=== PATIENT | female | born 1995 | race Two or more races ===

== ENCOUNTER → 2024-09-27 | Outpatient (CLI) | payer BC, SELFPAY ==
[2024-09-27 11:26] LABS: Calcium, Ionized 4.7 mg/dL (4.6-5.6)
[2024-09-27 11:28] LABS: Basophils % (Auto) 0 % (0-2.5); Eosinophils # (Auto) 0.2 Thou/mm3 (0.0-0.5); Eosinophils % (Auto) 2 % (0-10); Hematocrit 39.4 % (36.0-46.0); Hemoglobin 13.6 g/dL (12.0-16.0); Immature Granulocytes % (Auto) 0 % (0-0); Immature Granulocytes Auto 0.03 Thou/mm3 (0.00-0.00); Lymphocytes # (Auto) 2.5 Thou/mm3 (1.0-4.8); Lymphocytes % (Auto) 32 % (10-50); Mean Corpuscular HGB Conc 34.5 g/dl (31.0-37.0); Mean Corpuscular Hemoglobin 30.6 pg (25.0-35.0); Mean Corpuscular Volume 89 fL (80-100); Monocytes # (Auto) 0.9 Thou/mm3 (0.0-0.8); Monocytes % (Auto) 11 % (0-12); Neutrophils # (Auto) 4.3 Thou/mm3 (1.8-7.7); Neutrophils % (Auto) 55 % (37-80); Nucleated Red Blood Cell % 0 /100 WBC (0); Platelet Count 260 Thou/mm3 (140-440); RDW Standard Deviation 43.7 fL (36.4-46.3); Red Blood Count 4.45 Miln/mm3 (4.00-5.20); White Blood Count 7.9 Thou/mm3 (3.6-11.0)
[2024-09-27 11:50] LABS: Folate 14.49 ng/mL (>5.38); Vitamin B12 428 pg/mL (211-911); Vitamin D 25 Hydroxy Total 21.6 ng/mL (7.3-40.2)
[2024-09-27 12:16] LABS: Iron 189 mcg/dL (50-170)
[2024-09-27 12:19] LABS: Collection Type, Urine Clean Catch
[2024-09-27 12:39] LABS: Bilirubin,Urine Negative (Negative); Blood,Urine Negative (Negative); Clarity,Urine Clear (Clear/Hazy); Color,Urine Lt-Yellow (Lt Yel-Yel); Culture Indicated,Urine Not Indicated; Glucose, Urine Negative (Negative); Ketones,Urine Negative (Negative); Leukocyte Esterase,Urine Negative (Negative); Nitrite,Urine Negative (Negative); PH,Urine 5.5 (5.0-7.0); Protein,Urine Negative (Neg - Trace); RBC,Urine 3 /hpf (0-3); Specific Gravity,Urine 1.023 (1.001-1.035); Squamous Epithelial Cell,Urine < 1 /hpf (0-5); Urobilinogen,Urine Negative mg/dL (0.0-1.0); WBC,Urine < 1 /hpf (0-5)
[2024-09-27 12:51] LABS: Parathyroid Hormone Intact 48.1 pg/ml (18.5-88.0)
[2024-09-27 13:10] LABS: Syphilis Nonreactive (Nonreactive)
[2024-09-27 13:40] LABS: Alanine Aminotransferase 42 U/L (10-49); Albumin, Serum 4.8 gm/dL (3.5-5.0); Albumin/Globulin Ratio 1.8 (1.2-2.2); Alkaline Phosphatase 50 U/L (46-116); Anion Gap 8 (7-16); Aspartate Amino Transferase 24 U/L (0-34); BUN/Creatinine Ratio 20 Ratio (12-20); Bilirubin,Total 0.5 mg/dL (0.3-1.2); Blood Urea Nitrogen 14 mg/dL (9-23); Calcium 10.1 mg/dL (8.3-10.6); Calcium (Corrected) 10.1 mg/dL (8.5-10.1); Chloride 106 mMol/L (98-107); Creatinine (Component) 0.7 mg/dL (0.6-1.3); Globulin 2.7 gm/dL (2.3-3.5); Glucose 85 mg/dL (74-106); Magnesium 2.2 mg/dL (1.6-2.6); Osmolality,Calculated 280 (275-295); Potassium 4.6 mMol/L (3.4-5.1); Sodium 141 mMol/L (136-145); Thyroid Stimulating Hormone 1.24 uIU/mL (0.55-4.78); Total Protein 7.5 gm/dL (5.7-8.2); eGFR > 60 See Note
[2024-09-27 13:58] LABS: Cardiac Risk Estimate 3.9 RATIO (3.7-5.6); Cholesterol 185 mg/dL (132-200); HDL Cholesterol 48 mg/dL (40-60); LDL Cholesterol,Calculated 116 mg/dL (0-130); Triglycerides 107 mg/dL (30-150)
[2024-09-27 14:29] LABS: Glucose Estimated Average 94 mg/dL (80-131); Hemoglobin A1C 4.9 % Hgb (4.8-6.0)
[2024-09-27 15:12] LABS: Ferritin 80 ng/mL (7.3-270.7); Total Iron Binding Capacity 458 mcg/dL (250-425)
[2024-09-28 12:27] LABS: Chlamydia trachomatis PCR Negative (Not Detect); Neisseria Gonorrhoeae DNA PCR Negative (Not Detect); Trichomonas Negative (Negative)
[2024-10-02 17:49] LABS: HSV1 IgG Type Specific Ab <0.90 INDEX
[2024-10-04 06:36] LABS: HIV Ag/Ab, 4th Gen NON-REACTIVE; HSV2 IgG Type Specific Ab <0.90 INDEX
== END | disposition home or self-care (01) ==
LOC: COPL 10:47
PROVIDERS: PCP Family Medicine; Referring Provider Nurse Practitioner Family; Visit Provider Nurse Practitioner Family
DX: R42 Dizziness and giddiness (principal); I10 Essential (primary) hypertension; Z11.3 Encounter for screening for infections with a predominantly sexual mode of transmission; E78.5 Hyperlipidemia, unspecified; E55.9 Vitamin D deficiency, unspecified
CPT/HCPCS: 36415; 80053; 80061; 81001; 82306; 82330; 82607; 82728; 82746; 83036; 83540; 83550; 83735; 83970; 84439; 84443; 85025; 86695; 86696; 86780; 87389; 87491; 87591; 87661

== ENCOUNTER 2024-09-28 00:06 | Emergency (ER) | payer BC, SELFPAY ==
[2024-09-28 00:06] VITALS: BMI 28.3
[2024-09-28 00:18] VITALS: BP 139/91; PULSE 77; RESP 16; TEMP 37.2; O2SAT 99
--- NOTE | 2024-09-28 00:39 | XR_ITS ---
Examination: Transvaginal ultrasound of the pelvis, complete Technique: Transvaginal sonographic images pelvis performed using garza scale imaging Exam date and time: September 28, 2024 0114 hrs. Indications: Worsening pelvic pain beginning 2 days ago Findings: Uterus 9.2 x 4.5 x 5.3 cm Endometrial stripe 0.7 cm No uterine mass or intrauterine gestation Right ovary 2.0 x 1.5 x 1.7 cm arterial flow small follicles Left ovary 2.5 x 2.1 x 2.3 cm arterial flow small follicles No fluid in the cul-de-sac Impression: Negative examination.
--- NOTE | 2024-09-28 00:43 | PD.EDFMALE ---
ED Female Urogenital RME/HPI General Chief complaint: Abdominal Pain Stated complaint: LEFT PELVIC PAIN/CRAMPING SINCE YEST Time Seen by Provider: 09/28/24 00:39 Arrival date/time: 09/28/24 00:06 29F with history of HTN presents to ED with 2 days of L pelvic pain and N/V. Possibly dysuria. Patient denies vaginal bleeding but states her period is 2 weeks late. Limitations: no limitations Related Data Previous Rx's ?Medication ?Instructions ?Recorded hydrochlorothiazide 12.5 mg capsule 12.5 mg PO QDAY #30 caps 07/07/20 Allergies Allergy/AdvReac Type Severity Reaction Status Date / Time No Known Allergies Allergy Verified 09/28/24 00:08 Review of Systems Review of Systems Systems Reviewed: All systems reviewed, normal except as documented Constitutional Constitutional: Reports system reviewed and no additional complaints, except as documented, Denies fever(s) and Denies headache(s) ENT Ears, Nose, Mouth, and Throat: Denies disequilibrium and Denies headache(s) Cardiovascular Cardiovascular: Reports system reviewed and no additional complaints, except as documented, Denies chest pain and Denies dyspnea Respiratory Respiratory: Reports system reviewed and no additional complaints, except as documented, Denies cough and Denies dyspnea Gastrointestinal Gastrointestinal: Reports system reviewed and no additional complaints, except as documented, Reports as per HPI, Denies abdominal pain, Reports nausea and Reports vomiting Genitourinary Genitourinary: Reports as per HPI and Reports pelvic pain Neurologic Neurologic: Reports system reviewed and no additional complaints, except as documented, Denies confusion, Denies disequilibrium and Denies headache(s) Psychiatric Psychiatric: Denies confusion Past Medical History Past Medical History NEUROLOGIC: Negative Neurological Disorders CARDIAC: Positive Cardiac Disorders and Hypertension; Negative Congestive Heart Failure RESPIRATORY: Negative Chronic Obstructive Pulmonary Disease (COPD) GASTROINTESTINAL: Negative Gastrointestinal Disorders GENITOURINARY: Negative Genitourinary Disorders or Renal Disease MUSCULOSKELETAL: Negative Musculoskeletal Disorders ENDOCRINE: Positive Hypoglycemia; Negative Endocrine Disorders, Diabetes Mellitus Type 1 or Diabetes Mellitus Type 2 HEMATOLOGIC: Negative Blood Disorders Social History SMOKING STATUS: Never smoker ED Exam General Limitations: Present no limitations General appearance: Present alert and in no apparent distress Head Head exam: Present atraumatic Eye Eye exam: Present normal appearance, PERRL and EOMI ENT ENT exam: Present normal exam, normal oropharynx and mucous membranes moist Neck Neck exam: Present normal inspection, full ROM and trachea midline Chest Chest inspection: Present normal inspection and symmetric chest wall rise Respiratory Respiratory exam: Present normal lung sounds bilaterally Cardiovascular Cardiovascular exam: Present regular rate, normal rhythm and normal heart sounds Abdominal Exam Abdominal exam: Present soft and normal bowel sounds Extremities Exam Extremities exam: Present normal inspection and full ROM Back Exam Back exam: Present normal inspection and full ROM Neurological Exam Neurological exam: Present alert, oriented X3 and CN II-XII intact Psychiatric Psychiatric exam: Present normal affect and normal mood Skin Skin exam: Present warm, dry, intact and normal color Course Quality Measures none Orders Category Date Time Status US transvaginal Stat Exams 09/28/24 00:39 Taken CBC Stat Lab 09/28/24 01:06 Completed CMP [Comprehensive Metabolic Panel] Stat Lab 09/28/24 01:06 Completed Drug Screen,Urine Stat Lab 09/28/24 01:40 Completed HCG Qualitative,Urine Stat Lab 09/28/24 01:40 Completed Urinalysis, C/S if Indicated Stat Lab 09/28/24 01:40 Completed Ketorolac Inj [Toradol Inj] Med 09/28/24 02:29 Discontinued 60 mg IM X1 ONE Metoclopramide [Reglan] Med 09/28/24 00:44 Discontinued 10 mg PO X1 ONE Ondansetron Odt [Zofran Odt] Med 09/28/24 00:40 Discontinued 4 mg PO X1 ONE Vital Signs Vital signs: Vital Signs Temperature 98.9 F 09/28/24 00:18 Pulse Rate 77 09/28/24 00:18 Respiratory Rate 16 09/28/24 00:18 Blood Pressure 139/91 H 09/28/24 00:18 Pulse Oximetry (%) 99 09/28/24 00:18 Oxygen Delivery Method Room Air 09/28/24 00:18 O2 at 99% on RA and WNLs Urogenital - Female MDM Narrative MDM Narrative:: 29F with history of HTN presents to ED with 2 days of L pelvic pain and N/V. Possibly dysuria. Patient denies vaginal bleeding but states her period is 2 weeks late. Physical exam reveals no ab/pelvic tenderness. Patient is afebrile, calm, and alert. US reveals L ovarian cyst. No leukocytosis. CMP unremarkable. UA clean. HCG neg. Patient data External records reviewed:: [facility] previous records Clinical information provided by:: patient Social determinants that could affect healthcare access:: none Patient has the following chronic illnesses:: HTN How is presenting disease/condition affected by chronic disease/condition?: uneffected by Evaluation data The following diagnostics were reviewed and interpreted by me:: lab results and radiology exam(s) Lab and/or radiology exams considered but not ordered:: ordered Interpretation Summary: above Medications / Prescriptions Medications or Prescriptions considered but not ordered:: ordered Medication administrations:: Medication Administration History Discontinued Medications Ketorolac Tromethamine (Ketorolac Inj 60 Mg/2 Ml Vial) 60 mg IM X1 ONE Stop: 09/28/24 02:30 Metoclopramide HCl (Metoclopramide 5 Mg Tablet) 10 mg PO X1 ONE Stop: 09/28/24 00:45 Last Admin: 09/28/24 00:59 Dose: 10 mg Documented By: KRISTEN Ondansetron HCl (Ondansetron Odt 4 Mg Tabrap) 4 mg PO X1 ONE; Protocol Stop: 09/28/24 00:41 Last Admin: 09/28/24 01:01 Dose: Not Given Documented By: KRISTEN Non-Admin Reason: Discontinued above Consultations Consultation(s) initiated? (list below): No Diagnosis Urogenital Female Differential Diagnosis: urinary tract infection, bacterial vaginosis, trichomoniasis, cervicitis, ovarian cyst, vaginitis, ruptured ovarian cyst, cyst of Bartholin's gland, cystitis, dysmenorrhea and other (torsion, , miscarriage) Most likely diagnosis given after review of the tests above:: ovarian cyst Admission Indicated Admission indicated?: not indicated Admission Request Was there a request for admission?: No Disposition Plan Disposition Plan: Discharge Discharge Attestation Discharge Attestation: The patient and all family members were given an opportunity to ask questions and understood the discharge instructions. Discharge instructions specifically effects, indications for sooner follow up or return to the emergency department, and the expected course of current diagnosis. Patient condition: Stable Discharge Plan Plan Patient Disposition: HOME (Self Care) Disposition Comment: Stable Prescriptions/Referrals Prescriptions/Med Rec: No Action hydrochlorothiazide 12.5 mg capsule 12.5 mg PO QDAY Qty: 30 0RF Referrals: Corwin Irizarry([facility])MD [Primary Care Provider] - In 1 week Problem List Clinical Impression: Ovarian cyst Patient/Caregiver Discharge Instructions Education Materials: ED Ovarian Cyst Additional Instructions: Please follow-up with PCP within 24-48 hours and return immediately if symptoms worsen. Print Language: Turkmen Stand Alone Forms: Patient Portal Info Letter PA/TEAROOM HOST Supervising Physician CHEYENNE/UMBERTO Supervising Physician: Dr. Coles
[2024-09-28] MEDS: METOCLOPRAMIDE 5 MG TABLET 10 MG PO (00:59)
[2024-09-28 01:34] LABS: Basophils % (Auto) 0 % (0-2.5); Eosinophils # (Auto) 0.2 Thou/mm3 (0.0-0.5); Eosinophils % (Auto) 2 % (0-10); Hematocrit 35.3 % (36.0-46.0); Hemoglobin 12.5 g/dL (12.0-16.0); Immature Granulocytes % (Auto) 0 % (0-0); Immature Granulocytes Auto 0.03 Thou/mm3 (0.00-0.00); Lymphocytes % (Auto) 42 % (10-50); Mean Corpuscular HGB Conc 35.4 g/dl (31.0-37.0); Mean Corpuscular Hemoglobin 30.6 pg (25.0-35.0); Mean Corpuscular Volume 86 fL (80-100); Monocytes # (Auto) 1.1 Thou/mm3 (0.0-0.8); Monocytes % (Auto) 11 % (0-12); Neutrophils # (Auto) 4.2 Thou/mm3 (1.8-7.7); Neutrophils % (Auto) 44 % (37-80); Nucleated Red Blood Cell % 0 /100 WBC (0); Platelet Count 220 Thou/mm3 (140-440); RDW Standard Deviation 41.6 fL (36.4-46.3); Red Blood Count 4.09 Miln/mm3 (4.00-5.20); White Blood Count 9.5 Thou/mm3 (3.6-11.0)
[2024-09-28 01:49] LABS: Alanine Aminotransferase 36 U/L (10-49); Albumin, Serum 4.7 gm/dL (3.5-5.0); Albumin/Globulin Ratio 1.7 (1.2-2.2); Alkaline Phosphatase 51 U/L (46-116); Anion Gap 7 (7-16); Aspartate Amino Transferase 20 U/L (0-34); BUN/Creatinine Ratio 16 Ratio (12-20); Bilirubin,Total 0.4 mg/dL (0.3-1.2); Blood Urea Nitrogen 14 mg/dL (9-23); Calcium 10.1 mg/dL (8.3-10.6); Calcium (Corrected) 10.1 mg/dL (8.5-10.1); Chloride 107 mMol/L (98-107); Creatinine (Component) 0.9 mg/dL (0.6-1.3); Estimated Creatinine Clearance 89.6 mL/min (>60); Globulin 2.7 gm/dL (2.3-3.5); Glucose 87 mg/dL (74-106); Osmolality,Calculated 280 (275-295); Potassium 4.6 mMol/L (3.4-5.1); Sodium 141 mMol/L (136-145); Total Protein 7.4 gm/dL (5.7-8.2); eGFR > 60 See Note
--- NOTE | 2024-09-28 01:54 | PRELIM_ITS ---
Pelvic ultrasound (transvaginal). September 28, 2024 0114 hours Clinical history: L pelvic pain Techni que: Real-time, grayscale, transvaginal pelvic ultrasound was performed using Duplex scanning includi ng arterial inflow, venous outflow, color and spectral Doppler.Findings:The uterus is anteverted, elida suring 9.2 x 4.5 x 5.3 cm. The endometrium is unremarkable and measures 0.7 cm.The right ovary measur es 2 x 1.5 x 1.7 cm and demonstrates multiple follicles.The left ovary measures 2.5 x 2.1 x 2.3 cm an d demonstrates multiple follicles. There is a small cyst measuring 0.9 x 0.5 x 0.8 cm.Both ovaries de monstrate color flow and spectral waveforms on Doppler evaluation.There is no adnexal mass.There is n o free fluid on the submitted images.Impression:No sonographic evidence of ovarian torsion is demonst rated on the submitted images. Report Electronically Signed By: Avila Kennedy 09/28/2024 1:54:11 AM [E ST]
[2024-09-28 02:07] LABS: Collection Type, Urine Clean Catch
[2024-09-28 02:12] LABS: Bilirubin,Urine Negative (Negative); Blood,Urine Negative (Negative); Clarity,Urine Clear (Clear/Hazy); Color,Urine Lt-Yellow (Lt Yel-Yel); Culture Indicated,Urine Not Indicated; Glucose, Urine Negative (Negative); Ketones,Urine Negative (Negative); Leukocyte Esterase,Urine Negative (Negative); Nitrite,Urine Negative (Negative); Protein,Urine Negative (Neg - Trace); RBC,Urine 2 /hpf (0-3); Specific Gravity,Urine 1.027 (1.001-1.035); Squamous Epithelial Cell,Urine < 1 /hpf (0-5); Urobilinogen,Urine Negative mg/dL (0.0-1.0); WBC,Urine < 1 /hpf (0-5)
[2024-09-28 02:19] LABS: Amphetamine/Methamp Scrn,U Negative (Negative); Barbiturate Screen,Urine Negative (Negative); Benzodiazepines Screen,Urine Negative (Negative); Benzoylecgonine Screen, Ur Negative (Negative); Fentanyl Screen,Urine Negative (Negative); Opiate Screen,Urine Negative (Negative); THC Screen,Urine Negative (Negative)
[2024-09-28 02:21] LABS: HCG Qualitative,Urine Negative
== END 2024-09-28 02:46 | disposition home or self-care (01) ==
PROVIDERS: Physician Assistant; Emergency Provider Emergency Medicine; PCP Family Medicine
DX: N83.202 Unspecified ovarian cyst, left side (principal)
CPT/HCPCS: 36415; 76830; 80053; 80307; 81001; 81025; 85025; 99284; A9270

== ENCOUNTER 2024-12-09 23:32 | Emergency (ER) | payer BC, SELFPAY ==
[2024-12-09 23:34] VITALS: BP 184/115; PULSE 90; RESP 18; TEMP 36.9; O2SAT 98; BMI 28.0
[2024-12-09 23:39] VITALS: PULSE 84; RESP 18; O2SAT 99; BMI 28.3
--- NOTE | 2024-12-09 23:44 | XR_ITS ---
Examination: AP chest single view Technique one AP portable upright chest single view Exam date and time: December 10, 2024 0007 hrs. Comparison March 29, 2022 Indications: Onset chest pain today Findings: Normal heart size Lungs are clear. The osseous structures are intact Impression: No active disease
--- NOTE | 2024-12-09 23:46 | PD.EDSYNC ---
ED Syncope RME/HPI General Chief Complaint: Syncope / Near Syncope Stated Complaint: SYNCOPE Time Seen by Provider: 12/09/24 23:34 Arrival date/time: 12/09/24 23:32 RME / HPI RME / HPI narrative: Dr. Morillo?s Main ED Evaluation: 29yo female with a history of HTN who is ~9 weeks gestation BIBA from home presents to the ED for a chief complaint of syncope. Patient states she was at work when she started feeling weird , reporting she felt lethargic, nauseated, and my head was foggy and in a weird head space . Patient states she checked her blood pressure when she got home and was noted to be 180/100s, stating she felt faint and like I couldn't move . She states she was lightheaded, so she sat down and lost consciousness when her mom was calling 911 to bring her in for evaluation. Patient states she took an pill at 1200, noting she doesn't take the second one until tomorrow at 1200. She was having mild pelvic cramping that has since resolved. She reports associated sweating, mid chest pressure, shortness of breath, and nausea. She denies any vomiting, vaginal bleedig, weight changes, cough, runny nose or any other associated symptoms. Denies any alcohol or illicit drug use. She states she has been off of her antihypertensives for the last 3 months, but notes her blood pressure has been within niormal limits. No known allergies. Related Data Previous Rx's ?Medication ?Instructions ?Recorded hydrochlorothiazide 12.5 mg capsule 12.5 mg PO QDAY #30 caps 07/07/20 Allergies Allergy/AdvReac Type Severity Reaction Status Date / Time No Known Allergies Allergy Verified 09/28/24 00:08 Review of Systems Review of Systems Systems Reviewed: All systems reviewed, normal except as documented ED Exam Narrative Physical exam: GENERAL APPEARANCE: alert and oriented x 4, well-developed, well-nourished, no acute distress VITALS: All vitals were reviewed and the pulse ox is 98% on room air, which is normal according to my interpretation. HEENT: Normocephalic, atraumatic; pupils equal, round, reactive to light; EOMI; mucous membranes pink, moist; oropharynx clear NECK: Supple LUNGS: CTABL; no wheezes, no rales, no rhonchi HEART: Mildly tachycardic, regular rhythm; normal S1, S2; no murmurs ABDOMEN: non distended; normal BS; soft, no tenderness, no guarding, no rebound; no masses, no organomegaly, no hernia BACK: no CVA tenderness EXTREMITIES: atraumatic; no edema NEUROLOGIC: awake; alert and oriented x4; cranial nerves II-XII grossly intact; no focal sensory or motor deficits PSYCHIATRIC: anxious mood and affect SKIN: warm, dry, normal color; no rashes Course Course Course Narrative: CXR is ordered for determining the etiology of syncope. Quality Measures none Orders Category Date Time Status CT Screening NOW Care 12/10/24 03:10 Active Audio/Video Technician STAT Care 12/09/24 23:44 Active Continuous Pulse Oximetry ONCE Care 12/09/24 23:44 Active EKG (ED ONLY) *Do not use* NOW Care 12/09/24 23:44 Completed Insert IV STAT Care 12/09/24 23:[address] angio chest Stat Exams 12/10/24 03:10 Taken EKG (ED Only) Stat Exams 12/09/24 23:44 Ordered XR chest 1V portable Stat Exams 12/09/24 23:44 Taken B-Type Natriuretic Peptide Stat Lab 12/09/24 23:45 Completed CBC Stat Lab 12/09/24 23:45 Completed Comprehensive Metabolic Panel Stat Lab 12/09/24 23:44 Completed Drug Screen,Urine Stat Lab 12/09/24 23:52 Completed Free T4 (Free Thyroxine) Stat Lab 12/10/24 00:05 Completed HCG Qualitative,Urine Stat Lab 12/09/24 23:52 Completed Lipase Stat Lab 12/09/24 23:44 Completed Magnesium Stat Lab 12/09/24 23:44 Completed Thyroid Stimulating Hormone Stat Lab 12/10/24 00:05 Completed Troponin I Stat Lab 12/09/24 23:44 Completed Urinalysis, C/S if Indicated Stat Lab 12/09/24 23:52 Completed LORazepam [Ativan Inj] Med 12/10/24 02:02 Discontinued 0.5 mg IVP X1 ONE LORazepam [Ativan Inj] Med 12/10/24 02:58 Discontinued 0.5 mg IVP X1 ONE Labetalol IV [Trandate IV] Med 12/10/24 03:30 Discontinued 10 mg IVP X1 ONE Sodium Chloride 0.9% 1000 ml [Ns] 1,000 ml Med 12/09/24 23:44 Discontinued IV 999 mls/hr Vancomycin Inj 1,000 mg Med 12/09/24 23:43 Discontinued Sodium Chloride 0.9% 250 ml [Ns] 250 ml IV X1 hydrALAZINE INJ [Apresoline Inj] Med 12/10/24 01:30 Discontinued 10 mg IV X1 ONE Vital Signs Vital signs: Vital Signs Temperature 98.5 F 12/09/24 23:34 Pulse Rate 90 12/09/24 23:34 Respiratory Rate 18 12/09/24 23:34 Blood Pressure 184/115 H 12/09/24 23:34 Pulse Oximetry (%) 98 12/09/24 23:34 Oxygen Delivery Method Room Air 12/09/24 23:34 Syncope MDM Narrative MDM Narrative:: Scribe Attestation: 12/09/24 - Lauren Vance am scribing for and in the presence of Dr. Morillo. 0130: Patient's blood pressure is 145/114. Hydralazine 10mg ordered. 0145: I had an extensive conversation with the patient and her mom at the bedside. Patient's blood pressure is 188/118. Patient states she feels anxious, reporting it occurs when she is having medical problems. Ativan 0.5mg ordered. 0310: Patient is tachycardic in the 120s, reporting her symptoms have not resolved. CTA of the chest ordered to r/o PE. 0330: Diastolic blood pressure is 110 and the patient is still tachycardic. Labetolol 10mg ordered. 0455: I had an extensive conversation with the patient and her mom at bedside regarding the patient's test results. Patient and her mom had the opportunity to ask any questions they had, at which time they were all answered. Patient is stable to be discharged home. Return precautions were given. Patient verbalized understanding. Patient data External records reviewed:: [facility] previous records (Per chart review, patient was seen here on 09/28/24 for an ovarian cyst.) Clinical information provided by:: patient Social determinants that could affect healthcare access:: none Patient has the following chronic illnesses:: HTN How is presenting disease/condition affected by chronic disease/condition?: exacerbated by Evaluation data The following diagnostics were reviewed and interpreted by me:: lab results, radiology exam(s) and EKG tracing(s) Lab and/or radiology exams considered but not ordered:: none Interpretation Summary: CBC is normal, CMP is normal, Troponin is normal, BNP is normal, Lipase is normal, UDS is negative, HCG is positive, UA is unremarkable, according to my interpretation. CXR shows normal cardiac silhouette, normal sharp diaphragmatic edge, no infiltrates, normal costophrenic angles, according to my interpretation. EKG done at 2345, NSR, rate of 79, normal axis, RBBB, no ectopy, QRS: 102, QTc: 392, no STEMI, according to my interpretation. Telerad Preliminary Report Draft Patient: DOROTHEA MAE. Record#: [id number] Birthdate: 1995 Age/Sex: 29 / F Location: [facility] Attending Dr: Ordering Physician: Date of Service: Procedure(s): Accession Number(s): cc: ~ CT angiogram of the chest with intravenous contrast (axial sections with sagittal and coronal reformats); dated December 10, 2024 at 0346 hours Clinical History: Chest pain, tachy. Technique:Helical axial sections with sagittal and coronal reformats of the chest were obtained with intravenous contrast. Iterative reconstruction technique was employed to reduce patient radiation exposure. 3D/MIP reconstructed images were also provided. Comparison: None. Findings: There is no filling defect within the pulmonary artery divisions to suggest pulmonary thromboembolism. The mediastinum demonstrates no evidence of mass or lymphadenopathy. The thoracic aorta is unremarkable. There is no pericardial effusion. The lungs are clear. No evidence of pleural effusion or pneumothorax. The osseous structures are unremarkable. The visualized upper abdominal viscera are unremarkable. Impression: No CT evidence of pulmonary thromboembolism or other acute intrathoracic pathology. Report Electronically Signed By: Marcos Delgado 12/10/2024 4:54:42 AM Medications / Prescriptions Medications or Prescriptions considered but not ordered:: none Medication administrations:: Medication Administration History Discontinued Medications Hydralazine HCl (Hydralazine Inj 20 Mg/Ml Vial) 10 mg IV X1 ONE Stop: 12/10/24 01:31 Last Admin: 12/10/24 01:46 Dose: 10 mg Documented By: ERYN Vancomycin HCl 1,000 mg/ (Sodium Chloride) 250 mls @ 150 mls/hr IV X1 ONE Stop: 12/10/24 01:22 Sodium Chloride (Ns) 1,000 mls @ 999 mls/hr IV .Q1H1M ONE Stop: 12/10/24 00:44 Last Infusion: 12/10/24 01:18 Dose: Infused Documented By: Admin: 12/10/24 00:16 Dose: 999 mls/hr Documented By: ERYN Labetalol HCl (Labetalol Inj 5 Mg/Ml Vial 20 Ml) 10 mg IVP X1 ONE Stop: 12/10/24 03:31 Last Admin: 12/10/24 03:54 Dose: 10 mg Documented By: ERYN Lorazepam (Lorazepam 2 Mg/Ml Vial) 0.5 mg IVP X1 ONE Stop: 12/10/24 02:03 Last Admin: 12/10/24 02:55 Dose: 0.5 mg Documented By: ERYN Lorazepam (Lorazepam 2 Mg/Ml Vial) 0.5 mg IVP X1 ONE Stop: 12/10/24 02:59 Last Admin: 12/10/24 03:03 Dose: 0.5 mg Documented By: ERYN see above Consultations Consultation(s) initiated? (list below): No Diagnosis Syncope Differential Diagnosis: other (hypertensive emergency, hypertensive crisis, anxiety reaction, POTS) Most likely diagnosis given after review of the tests above:: see below Admission Indicated Admission indicated?: not indicated Admission Request Was there a request for admission?: No Disposition Plan Disposition Plan: Discharge Discharge Attestation Discharge Attestation: The patient and all family members were given an opportunity to ask questions and understood the discharge instructions. Discharge instructions specifically effects, indications for sooner follow up or return to the emergency department, and the expected course of current diagnosis. Patient condition: Stable Discharge Plan Plan Patient Disposition: HOME (Self Care) Disposition Comment: Stable for discharge Patient condition on transfer: Stable Prescriptions/Referrals Prescriptions/Med Rec: No Action hydrochlorothiazide 12.5 mg capsule 12.5 mg PO QDAY Qty: 30 0RF Referrals: Bear Pfeiffer MD [Physician] - In 1 week (You were seen in the emergency department after another one of your episodes of tachycardia, headache, tremors, nausea.) Corwin Irizarry([facility])MD [Primary Care Provider] - In 1 week Problem List Clinical Impression: Hypertension, Tachycardia Patient/Caregiver Discharge Instructions Discharge Activity: activity as tolerated Education Materials: Controlling High Blood Pressure, Your Heart's Electrical System, Blood Pressure Check Steps, Understanding Tachycardia, ED Hypertension, Established Additional Instructions: Please return to the emergency department if you have any worsening or any further medical problems. Otherwise you should follow-up with your primary care doctor within the next several days You should follow-up with Dr. Luz Elena Hernandez. He is our marketing ambassador or heart doctor that is on-call for emergency department tonight. You are having these odd episodes of tachycardia, tremors, headache, chest pressure and you may benefit from having a Holter monitor placed or even a tilt table test to rule out POTS disease. Print Language: Occitan Stand Alone Forms: Cheryl Award Info., Patient Portal Info Letter
[2024-12-10] VITALS (9 sets, daily range): BP systolic 136–192; BP diastolic 90–140; PULSE 78–130; RESP 16–23; TEMP 36.8–36.9; O2SAT 95–100
[2024-12-10 00:05] LABS: Amphetamine/Methamp Scrn,U Negative (Negative); Barbiturate Screen,Urine Negative (Negative); Benzodiazepines Screen,Urine Negative (Negative); Benzoylecgonine Screen, Ur Negative (Negative); Fentanyl Screen,Urine Negative (Negative); Opiate Screen,Urine Negative (Negative); THC Screen,Urine Negative (Negative)
[2024-12-10 00:16] LABS: HCG Qualitative,Urine Positive
[2024-12-10] MEDS: SODIUM CHLORIDE 0.9% 1000 ML 1,000 ML 999 ML IV (00:16)
[2024-12-10 00:29] LABS: Basophils % (Auto) 0 % (0-2.5); Eosinophils # (Auto) 0.1 Thou/mm3 (0.0-0.5); Eosinophils % (Auto) 2 % (0-10); Hematocrit 39.9 % (36.0-46.0); Immature Granulocytes % (Auto) 0 % (0-0); Immature Granulocytes Auto 0.02 Thou/mm3 (0.00-0.00); Lymphocytes # (Auto) 2.8 Thou/mm3 (1.0-4.8); Lymphocytes % (Auto) 35 % (10-50); Mean Corpuscular HGB Conc 35.1 g/dl (31.0-37.0); Mean Corpuscular Hemoglobin 30.2 pg (25.0-35.0); Mean Corpuscular Volume 86 fL (80-100); Monocytes % (Auto) 12 % (0-12); Neutrophils # (Auto) 3.9 Thou/mm3 (1.8-7.7); Neutrophils % (Auto) 50 % (37-80); Nucleated Red Blood Cell % 0 /100 WBC (0); Platelet Count 257 Thou/mm3 (140-440); RDW Standard Deviation 39.8 fL (36.4-46.3); Red Blood Count 4.63 Miln/mm3 (4.00-5.20); White Blood Count 7.8 Thou/mm3 (3.6-11.0)
[2024-12-10 00:48] LABS: Alanine Aminotransferase 27 U/L (10-49); Albumin, Serum 4.7 gm/dL (3.5-5.0); Albumin/Globulin Ratio 1.7 (1.2-2.2); Alkaline Phosphatase 61 U/L (46-116); Anion Gap 9 (7-16); Aspartate Amino Transferase 23 U/L (0-34); BUN/Creatinine Ratio 11 Ratio (12-20); Bilirubin,Total 0.2 mg/dL (0.3-1.2); Blood Urea Nitrogen 10 mg/dL (9-23); Calcium 9.8 mg/dL (8.3-10.6); Calcium (Corrected) 9.8 mg/dL (8.5-10.1); Carbon Dioxide 27.4 mMol/L (20.0-31.0); Chloride 107 mMol/L (98-107); Creatinine (Component) 0.9 mg/dL (0.6-1.3); Estimated Creatinine Clearance 89.6 mL/min (>60); Globulin 2.7 gm/dL (2.3-3.5); Glucose 93 mg/dL (74-106); Lipase 36 U/L (12-53); Osmolality,Calculated 283 (275-295); Potassium 3.6 mMol/L (3.4-5.1); Sodium 143 mMol/L (136-145); Total Protein 7.4 gm/dL (5.7-8.2); Troponin I < 0.002 ng/mL (0.0-0.045); eGFR > 60 See Note
[2024-12-10 00:57] LABS: B-Type Natriuretic Peptide < 20 pg/mL (0-100)
[2024-12-10 01:12] LABS: Collection Type, Urine Clean Catch; WBC,Urine 0 /hpf (0-5)
[2024-12-10 01:22] LABS: Bacteria,Urine Rare; Bilirubin,Urine Negative (Negative); Blood,Urine Negative (Negative); Clarity,Urine Clear (Clear/Hazy); Color,Urine Colorless (Lt Yel-Yel); Culture Indicated,Urine Not Indicated; Glucose, Urine Negative (Negative); Ketones,Urine Negative (Negative); Leukocyte Esterase,Urine Negative (Negative); Nitrite,Urine Negative (Negative); Protein,Urine Negative (Neg - Trace); RBC,Urine < 1 /hpf (0-3); Specific Gravity,Urine 1.005 (1.001-1.035); Squamous Epithelial Cell,Urine < 1 /hpf (0-5); Urobilinogen,Urine Negative mg/dL (0.0-1.0)
[2024-12-10] MEDS: hydrALAZINE INJ 20 MG/ML VIAL 10 MG IV (01:46)
[2024-12-10] MEDS: LORazepam 2 MG/ML VIAL 0.5 MG IVP ×2 (02:55→03:03)
--- NOTE | 2024-12-10 03:10 | XR_ITS ---
Examination: CTA chest with intravenous contrast 2-D reconstructions 3-D reconstructions, vascular Date and time of exam: December 10, 2024 at 0346 hrs. Indications: Chest pain shortness of breath and tachycardia today CTDI: vol (mGy) 12.2 DLP: (mGycm) 315 Technique: Multiple axial sections of the thorax have been obtained. 3 mm slice thickness, from below the hemidiaphragms to above the apices of the lungs. Mediastinal and lung density settings have been obtained. 2-D sagittal and coronal reconstructions. 3-D angiographic renderings, 3-D volume renderings, 3D post processing, vascular maximum intensity projections obtained. Contrast administered is 70 cc [id number]. Intravenous Low dose protocols were performed. One or more of the following dose reduction techniques were used; automated exposure control, adjustment of the mA and/or KV according to patient size, use of iterative reconstruction technique. Findings: No thoracic aortic aneurysmal dilatation or dissection No pulmonary artery filling defects No paratracheal tracheobronchial or bronchopulmonary adenopathy No pneumonia or pulmonary edema or pleural disease No focal liver or splenic lesions No hydronephrosis Impression: Negative for pulmonary artery emboli No pneumonia or pulmonary edema or pleural disease
[2024-12-10] MEDS: LABETALOL INJ 5 MG/ML VIAL 20 ML 10 MG IVP (03:54)
[2024-12-10 04:02] LABS: Free T4 (Free Thyroxine) 1.16 ng/dL (0.89-1.76); Thyroid Stimulating Hormone 2.95 uIU/mL (0.55-4.78)
--- NOTE | 2024-12-10 04:55 | PRELIM_ITS ---
CT angiogram of the chest with intravenous contrast (axial sections with sagittal and coronal reformats); dated December 10, 2024 at 0346 hours Clinical History: Chest pain, tachy. Technique:Helical axial sections with sagittal and coronal reformats of the chest were obtained with intravenous contrast. Iterative reconstruction technique was employed to reduce patient radiation exposure. 3D/MIP reconstructed images were also provided. Comparison: None. Findings: There is no filling defect within the pulmonary artery divisions to suggest pulmonary thromboembolism. The mediastinum demonstrates no evidence of mass or lymphadenopathy. The thoracic aorta is unremarkable. There is no pericardial effusion. The lungs are clear. No evidence of pleural effusion or pneumothorax. The osseous structures are unremarkable. The visualized upper abdominal viscera are unremarkable. Impression: No CT evidence of pulmonary thromboembolism or other acute intrathoracic pathology. Report Electronically Signed By: Marcos Delgado 12/10/2024 4:54:42 AM [EST]
== END 2024-12-10 05:40 | disposition home or self-care (01) ==
PROVIDERS: Emergency Provider Emergency Medicine; PCP Family Medicine
DX: O10.911 Unspecified pre-existing hypertension complicating pregnancy, first trimester (principal); R00.0 Tachycardia, unspecified; Z3A.09 9 weeks gestation of pregnancy; O26.891 Other specified pregnancy related conditions, first trimester
CPT/HCPCS: 36415; 71045; 71275; 80053; 80307; 81001; 81025; 83690; 83735; 83880; 84439; 84443; 84484; 85025; 96361; 96374; 99284; A4649; J0360; J2060; J3490; J7030; Q9967; J1920

== ENCOUNTER → 2024-12-26 | Outpatient (CLI) | payer BC, SELFPAY ==
[2024-12-26 13:24] LABS: Basophils % (Auto) 0 % (0-2.5); Eosinophils # (Auto) 0.1 Thou/mm3 (0.0-0.5); Eosinophils % (Auto) 2 % (0-10); Hematocrit 38.6 % (36.0-46.0); Hemoglobin 13.1 g/dL (12.0-16.0); Immature Granulocytes % (Auto) 0 % (0-0); Immature Granulocytes Auto 0.01 Thou/mm3 (0.00-0.00); Lymphocytes # (Auto) 1.6 Thou/mm3 (1.0-4.8); Lymphocytes % (Auto) 32 % (10-50); Mean Corpuscular HGB Conc 33.9 g/dl (31.0-37.0); Mean Corpuscular Hemoglobin 29.9 pg (25.0-35.0); Mean Corpuscular Volume 88 fL (80-100); Monocytes # (Auto) 0.7 Thou/mm3 (0.0-0.8); Monocytes % (Auto) 14 % (0-12); Neutrophils # (Auto) 2.6 Thou/mm3 (1.8-7.7); Neutrophils % (Auto) 52 % (37-80); Nucleated Red Blood Cell % 0 /100 WBC (0); Platelet Count 240 Thou/mm3 (140-440); RDW Standard Deviation 40.6 fL (36.4-46.3); Red Blood Count 4.38 Miln/mm3 (4.00-5.20)
[2024-12-26 13:50] LABS: Glucose Estimated Average 91 mg/dL (80-131); Hemoglobin A1C 4.8 % Hgb (4.8-6.0)
[2024-12-26 13:51] LABS: Parathyroid Hormone Intact 63.8 pg/ml (18.5-88.0)
[2024-12-26 13:57] LABS: Alanine Aminotransferase 28 U/L (10-49); Albumin, Serum 4.5 gm/dL (3.5-5.0); Alkaline Phosphatase 61 U/L (46-116); Anion Gap 7 (7-16); Aspartate Amino Transferase 18 U/L (0-34); BUN/Creatinine Ratio 13 Ratio (12-20); Bilirubin,Total 0.2 mg/dL (0.3-1.2); Blood Urea Nitrogen 10 mg/dL (9-23); Calcium 9.4 mg/dL (8.3-10.6); Calcium (Corrected) 9.4 mg/dL (8.5-10.1); Carbon Dioxide 28.8 mMol/L (20.0-31.0); Chloride 107 mMol/L (98-107); Creatinine (Component) 0.8 mg/dL (0.6-1.3); Free T4 (Free Thyroxine) 0.93 ng/dL (0.89-1.76); Globulin 2.3 gm/dL (2.3-3.5); Glucose 85 mg/dL (74-106); Osmolality,Calculated 282 (275-295); Potassium 4.5 mMol/L (3.4-5.1); Sodium 143 mMol/L (136-145); Thyroid Stimulating Hormone 0.72 uIU/mL (0.55-4.78); Total Protein 6.8 gm/dL (5.7-8.2); eGFR > 60 See Note
[2024-12-31 07:00] LABS: ACTH, Plasma* 9 pg/mL (6-50)
== END | disposition home or self-care (01) ==
LOC: COPL 12:28
PROVIDERS: PCP Family Medicine; Referring Provider Nurse Practitioner Family; Visit Provider Nurse Practitioner Family
DX: I10 Essential (primary) hypertension (principal); Z13.1 Encounter for screening for diabetes mellitus; Z13.29 Encounter for screening for other suspected endocrine disorder
CPT/HCPCS: 36415; 80053; 82024; 83036; 83970; 84439; 84443; 85025